=== PATIENT | female | born 1990 | race Caucasian/White ===

== ENCOUNTER 2023-12-22 08:33 | Emergency (ER) | payer BC, SELFPAY ==
[2023-12-22 08:38] VITALS: BP 125/81; PULSE 65; RESP 18; TEMP 36.6; O2SAT 100; BMI 26.3
--- NOTE | 2023-12-22 08:57 | ED_ITS ---
HPI - General Adult General Time Seen by Provider: 08:57 Date Seen: 12/22/23 Chief complaint: Fever Stated complaint: Kidney infection, fever Time Seen by Provider: 12/22/23 08:56 Source: patient and RN notes reviewed Mode of arrival: ambulatory Limitations: no limitations History of Present Illness HPI narrative: This 33-year-old female is coming in with concerns of ongoing fevers in setting of treatment for pyelonephritis. On TuesdayDecember 19 patient spiked a high fever. She went into clinic, her white count was mildly elevated at 13,200 thousand two hundred with absolute neutrophil count of 10,800 which was elevated. Her creatinine was elevated on December 14, was in for different appointment, value was 1.62. When she was in on December 19 it was 1.07. This value was normal. Her urinalysis was nitrite positive, she did grow E coli greater than 100 1000 units and was resistant only to ampicillin, intermediate resistance to Unasyn. She has been on Keflex 500 mg 3 times a day. She did get a dose of Rocephin while in the clinic, 1 g. She did have a CT of her abdomen pelvis with contrast showing mildly atrophic right kidney with moderate multifocal renal cortical scarring, compatible with cycle a of prior infection. No hydronephrosis. Mild patchy wedge shaped hypo enhancing areas in the bilateral kidneys may represent pyelonephritis. Consider correlation with urinalysis. [place] of intra-abdominal fat slightly limits evaluation of the bowel. Moderate stool burden. Normal appendix. No evidence of bowel obstruction. She notes ongoing abdominal pain, was having abdominal pain for about a week prior to the fever. She thought she was constipated, had increased calories and her macro nutrients in her diet. She is drinking adequately, no nausea or vomiting. She had ongoing fevers in the 100-101 range but this morning is the 1st days she did not have fever. She had appointment at the clinic but they called her and told her to come to the ER. She notes if she eats anything has significant increase in abdominal pain. No urinary changes. She actually feels like the abdominal pain is worse. It is throughout the abdomen but still in the right back as well. She was unaware of the underlying kidney issues. She declines any pain management at this time. Related Data Home Medications ?Medication ?Instructions ?Recorded ?Confirmed cephalexin 500 mg capsule 500 mg PO 3XD 12/22/23 12/22/23 Allergies Allergy/AdvReac Type Severity Reaction Status Date / Time No Known Drug Allergies Allergy Verified 12/22/23 08:43 Review of Systems Status of ROS: Reports: 6 or more systems reviewed and unremarkable except as noted in History and below PFSH PFS Social History Smoking Status: Never smoker Do you use any of these nicotine containing products: None Second hand tobacco smoke exposure: No How often do you have a drink containing alcohol: never How often do you have six or more drinks on one occasion: Never AUDIT-C Alcohol total score: 0 Non-prescribed substance use: denies use service: No Exam Const: Vital Signs, click to edit/add: Vital Signs - 24 hr 12/22/23 08:38 Temperature 97.8 F Pulse Rate [Right Pulse Oximeter] 65 Respiratory Rate 18 Blood Pressure [Ri ght Upper Arm] 125/81 Pulse Oximetry 100 Oxygen Delivery Me thod Room Air 33-year-old female that is alert, intera ctive, no parents stress. Very pleasant patient. She is speaking in complete sentences, speech normal. Sclera clear. Normal facial function. CV regular rate and rhythm, no murmur. Lungs are clear, good air entry, no wheezing or crackles. She does have right CVA tenderness. Abdomen is soft, nondistended, no organomegaly. No definitive abd ominal tenderness, note patient states that just mild pain throughout but no true rebound or guarding. Skin is warm and dry, skin visualized without rash. Documenting provider has reviewed patient's vital signs: yes Course Course ED Course: This patient has definite pyelonephritis but with worsening pain. Need to consider complications of her infection like abscess. We did review that this could be constipation. May need to consider repeat imaging today. Will start with blood work. She declines anything for pain management at this time. Reevaluation(s) Time of Reevaluation #1: 10:14 Reevaluation #1: Reviewed with Tara that her white blood count is improved. Discussed imaging options. She ultimately would like to proceed with a CT. We have discussed r isks and benefits of that. Will order CT abdomen and pelvis with IV contrast. We will give her a L of IV fluids after the CT to help flush the contrast. Time of Reevaluation #2: 13:19 Reevaluation #2: Reviewed that her CT showing no acute changes, certainly no worsening or worrisome complications of pyelonephritis. There is nothing else there identifiable as the cause of her pain. She will work on constipation at home. She will complete the Keflex. She does state that her provider has put in a referral for Nephrology for her. I do think this is important for her. Vital Signs Vital signs: Initial Vital Signs Temperature 97.8 F 12/22/23 08:38 Temperature Source Temporal Artery Scan 12/22/23 08:38 Pulse Rate 65 12/22/23 08:38 Pulse Rhythm Regular 12/22/23 08:38 Pulse Strength 3+ Normal 12/22/23 08:38 Respiratory Rate 18 12/22/23 08:38 Blood Pressure 125/81 12/22/23 08:38 Blood Pressure Mean 95 12/22/23 08:38 Blood Pressure Position Sitting 12/22/23 08:38 Pulse Oximetry 100 12/22/23 08:38 Oxygen Delivery Method Room Air 12/22/23 08:38 Vital Signs Temperature 97.8 F 12/22/23 08:38 Pulse Rate 65 12/22/23 08:38 Respiratory Rate 18 12/22/23 08:38 Blood Pressure 125/81 12/22/23 08:38 Pulse Oximetry 100 12/22/23 08:38 Oxygen Delivery Method Room Air 12/22/23 08:38 Temperature 97.8 F 12/22/23 08:38 Pulse Rate 65 12/22/23 08:38 Respiratory Rate 18 12/22/23 08:38 Blood Pressure 125/81 12/22/23 08:38 Pulse Oximetry 100 12/22/23 08:38 Oxygen Delivery Method Room Air 12/22/23 08:38 Medications Administered Medications: Discontinued Medications Generic Name Dose Route Start Last Admin Trade Name Freq PRN Reason Stop Dose Admin Sodium Chloride 1,000 mls @ 1,000 mls/hr 12/22/23 10:15 12/22/23 11:37 0.9 % Sodium Chloride 1000 Ml IV 12/22/23 11:14 1,000 mls/hr .Q1H MARJORIE Administration Medical Decision Making Lab Data Labs: Lab Results 12/22/23 Range/Units 09:29 WBC 11.73 H (4.50-11.00) K/uL RBC 4.46 (4.00-5.20) m/uL Hgb 12.9 (12.0-16.0) gm/dL Hct 39.1 (33.0-51.0) % MCV 88 (80-100) fL MCH 29 (26-34) pg MCHC 33 (32-36) gm/dL RDW Coeff of Allen 12.4 (11.5-15.5) % Plt Count 173 (140-440) K/uL Neut % (Auto) 72.1 H (42.0-72.0) % Lymph % (Auto) 15.7 L (20-44) % Hubbard % (Auto) 11.3 H (0.0-11.0) % Eos % (Auto) 0.4 (0.0-7.0) % Baso % (Auto) 0.3 (0.0-3.0) % Neut # (Auto) 8.50 H (1.7-7.0) K/uL Lymph # (Auto) 1.80 (0.90-2.90) K/uL Hubbard # (Auto) 1.30 H (0.00-0.90) K/UL Eos # (Auto) 0.00 (0.00-0.50) K/uL Baso # (Auto) 0.00 (0.00-0.30) K/uL Abs Immat Gran (auto) 0.00 (0.00-0.30) K/uL Imm/Tot Granulo (auto) 0.2 % Sodium 138 (135-149) mmol/L Potassium 4.1 (3.6-5.1) mmol/L Chloride 109 (96-114) mmol/L Carbon Dioxide 25 (20-32) mmol/L Anion Gap 4 L (7-15) mEq/L BUN 15 (5-24) mg/dL Creatinine 0.8 (0.5-1.5) mg/dL Estimated Creat Clear 96.36 Estimated GFR 99 ml/min Glucose 87 (60-115) mg/dL Lactate 0.6 (0.5-1.9) mmol/L Calcium 9.0 (8.4-10.6) mg/dL Total Bilirubin 0.7 (0.1-1.5) mg/dL AST 21 (12-35) U/L ALT 16 (4-35) U/L Alkaline Phosphatase 70 (40-150) U/L C-Reactive Protein 19.6 H (0.5-1.0) mg/dL Total Protein 8.1 (6.0-8.3) g/dL Albumin 4.3 (3.3-5.0) g/dL Procalcitonin 0.12 (<0.50) ng/mL Imaging Data CT scan - abdomen: Attestation: I have reviewed the pertinent imaging results. Radiologist's impression: Patient: ALTHEA DUMONT Facility:?[facility] Patient ID:?[id number] Site Patient ID:?[id number]. Site :?[id number] Study:?CT-Abdomen/Pelvis 82CC ISOVUE 370-12/22/2023 12:13:27 PM Ordering Physician:Norma Connor Final Report: Indication: Abdominal pain, pyelonephritis Technique: CT abdomen and pelvis with intravenous contrast, 82 cc of Isovue 370. Please note that all CT scans at this facility use dose modulation, iterative reconstruction, and/or weight-based dosing when appropriate to reduce radiation dose to as low as reasonably achievable. Comparison: CT abdomen and pelvis December 20, 2023 Findings: Lower chest remains clear. The liver, gallbladder, spleen, adrenal glands, and pancreas are normal. Stable small right kidney with cortical scarring. Stable slightly wedge-shaped hypodensity within the left mid kidney. No interval stones or hydronephrosis. No perinephric abscess. Urinary bladder is grossly unremarkable. No interval pelvic cysts or masses. Hollow viscera are unchanged/no interval bowel obstruction or appendicitis. Abdominal aorta and its major branches are patent and normal in caliber. No interval free air, ascites or lymphadenopathy. Bones and soft tissues are stable. Impression: Stable study Please note that all CT scans at this facility use dose modulation, iterative reconstruction, and/or weight-based dosing when appropriate to reduce radiation dose to as low as reasonably achievable. Dictated by Dony Denis MD @ 12/22/2023 12:39:43 PM (Electronic Signature) Discharge Plan Discharge Clinical Impression: Pyelonephritis Abdominal pain Qualifiers: Abdominal location: unspecified location Qualified Code(s): R10.9 - Unspecified abdominal pain Patient Disposition: Home, Self-Care Condition: Stable Instructions: Kidney Infection (ED) Additional Instructions: Continue to drink adequate fluids. May want to back off your diet until you know for sure that your having normal routine bowel movements and no constipation. Continue the Keflex for the pyelonephritis. I would anticipate that the fever should be going away in the next couple days, pain should be improving as well. If you have further concerns, have ongoing increasing abdominal pain, have vomiting or ongoing fevers with this, do need to be re- evaluated. Activity Level: Activity as Tolerated Prescriptions: No Action cephalexin 500 mg capsule 500 mg PO 3XD Follow Up/Referrals: Edwina Ambrocio, VARUN [Primary Care Provider] - Stand Alone Forms: [employer] Info Instructions
[2023-12-22 09:34] LABS: Lactate* 0.6 mmol/L (0.5-1.9)
[2023-12-22 09:47] LABS: Basophils Percent Auto 0.3 % (0.0-3.0); Eosinophils Percent Auto 0.4 % (0.0-7.0); Hematocrit 39.1 % (33.0-51.0); Hemoglobin* 12.9 gm/dL (12.0-16.0); Immature Granulocytes Pct Auto 0.2 %; Lymphocytes Percent Auto 15.7 % (20-44); Mean Corpuscular HGB Conc 33 gm/dL (32-36); Mean Corpuscular Hemoglobin 29 pg (26-34); Mean Corpuscular Volume 88 fL (80-100); Monocytes Percent Auto 11.3 % (0.0-11.0); Neutrophils Percent Auto 72.1 % (42.0-72.0); Platelet Count* 173 K/uL (140-440); RDW Coefficient of Variation % 12.4 % (11.5-15.5); Red Blood Count 4.46 m/uL (4.00-5.20); White Blood Count* 11.73 K/uL (4.50-11.00)
[2023-12-22 09:54] LABS: Slide Review Reflex No
[2023-12-22 09:58] LABS: Albumin* 4.3 g/dL (3.3-5.0); Chloride* 109 mmol/L (96-114)
[2023-12-22 09:59] LABS: Potassium* 4.1 mmol/L (3.6-5.1); Sodium* 138 mmol/L (135-149)
[2023-12-22 10:01] LABS: Alkaline Phosphatase* 70 U/L (40-150); Anion Gap 4 mEq/L (7-15); Aspartate Amino Transferase* 21 U/L (12-35); Bilirubin Total* 0.7 mg/dL (0.1-1.5); Carbon Dioxide* 25 mmol/L (20-32); Creatinine* 0.8 mg/dL (0.5-1.5); Est. Creatinine Clearance* 96.36; Estimated Glomerular Filt Rate 99 ml/min; Total Protein* 8.1 g/dL (6.0-8.3)
[2023-12-22 10:02] LABS: Alanine Aminotransferase* 16 U/L (4-35); Blood Urea Nitrogen* 15 mg/dL (5-24); Glucose* 87 mg/dL (60-115)
--- NOTE | 2023-12-22 10:15 | CRLHL7_ITS ---
For Patients: As a result of the Century Cures Act, medical imaging exams and procedure reports are released immediately into your electronic medical record. You may view this report before your referring provider. If you have questions, please contact your health care provider. Indication: Abdominal pain, pyelonephritis Technique: CT abdomen and pelvis with intravenous contrast, 82 cc of Isovue 370. Please note that all CT scans at this facility use dose modulation, iterative reconstruction, and/or weight-based dosing when appropriate to reduce radiation dose to as low as reasonably achievable. Comparison: CT abdomen and pelvis December 20, 2023 Findings: Lower chest remains clear. The liver, gallbladder, spleen, adrenal glands, and pancreas are normal. Stable small right kidney with cortical scarring. Stable slightly wedge-shaped hypodensity within the left mid kidney. No interval stones or hydronephrosis. No perinephric abscess. Urinary bladder is grossly unremarkable. No interval pelvic cysts or masses. Hollow viscera are unchanged/no interval bowel obstruction or appendicitis. Abdominal aorta and its major branches are patent and normal in caliber. No interval free air, ascites or lymphadenopathy. Bones and soft tissues are stable. Impression: Stable study Please note that all CT scans at this facility use dose modulation, iterative reconstruction, and/or weight-based dosing when appropriate to reduce radiation dose to as low as reasonably achievable. Dictated by Dony Denis MD @ 12/22/2023 12:39:43 PM (Electronically Signed)
[2023-12-22 10:16] LABS: C Reactive Protein* 19.6 mg/dL (0.5-1.0)
[2023-12-22 10:20] LABS: Procalcitonin* 0.12 ng/mL (<0.50)
[2023-12-22] MEDS: 0.9 % SODIUM CHLORIDE 1000 ml 1,000 ML IV (11:37)
== END 2023-12-22 13:30 | disposition home or self-care (01) ==
PROVIDERS: Emergency Provider Family Medicine; PCP Nurse Practitioner Family
DX: N10 Acute pyelonephritis (principal)
CPT/HCPCS: 36415; 74177; 80053; 83605; 84145; 85025; 86140; 99284; J7030; Q9967